=== PATIENT | female | born 1955 | race Caucasian/White ===

== ENCOUNTER 2022-07-27 08:27 | Inpatient (IN) | payer MEDICARE, MEDICAID ==
[~2022-07-27] VITALS: Ht 157.5 cm; Wt 54.4 kg
[2022-07-27 09:24] LABS: Basophils # (auto) 0.1 10 ^3/uL (0-0.2); Eosinophils # (auto) 0.2 10 ^3/uL (0-0.8); Eosinophils % (auto) 1.8 % (0.0-7.0); Hemoglobin 15.9 g/dL (12.2-16.2); Lymphocytes % (auto) 10.2 % (10.0-50.0); Mean Corpuscular Hemoglobin 31.3 pg (28.0-32.0); Mean Corpuscular Hgb Conc. 32.4 g/dL (32.0-36.0); Mean Corpuscular Volume 96.3 fL (80.0-100.0); Monocytes % (auto) 10.7 % (0.0-12.0); Neutrophils # (auto) 7.2 10 ^3/uL (1.6-8.6); Neutrophils % (auto) 76.3 % (37.0-80.0); Nucleated Red Blood Cells % 0.1 %; Red Blood Cells 5.09 10^6/uL (4.0-5.20); Red Cell Distribution Width 17.4 % (11.8-14.3); White Blood Cell 9.5 10^3/uL (4.4-10.8)
[2022-07-27 09:42] LABS: Albumin 3.1 g/dL (3.4-5.0); Calcium 8.6 mg/dL (8.5-10.1); Magnesium 2.7 mg/dL (1.6-2.6); Potassium 4.4 mmol/L (3.5-5.1)
[2022-07-27 09:46] LABS: BUN/Creatinine Ratio 14.8 (10.0-20.0); Bilirubin, Total 0.6 mg/dL (0.2-1.0); Total Protein 6.4 g/dL (6.4-8.2)
[2022-07-27] MEDS ORDERED: AMIODARONE HCL 150 MG in D5W 5% 100 ML IV ONE (11:45)
[2022-07-27] MEDS ORDERED: FUROSEMIDE 20 MG/2 ML VIAL IV ONE ×2 (11:45→13:15)
[2022-07-27] MEDS ORDERED: AMIODARONE 450mg/250ml AE 250 ML IV SCH (12:00)
[2022-07-27] MEDS ORDERED: DOCUSATE SOD 100 MG CAP PO PRN (13:15)
[2022-07-27] MEDS ORDERED: MORPHINE SULFATE INJ 2 MG/ml SYRG IV PRN (13:15)
[2022-07-27] MEDS ORDERED: HYDROcodone-ACET 5/325MG TAB PO PRN (13:15)
[2022-07-27] MEDS ORDERED: ONDANSETRON HCL 4 MG/2 ML VIAL IV PRN (13:15)
[2022-07-27] MEDS ORDERED: NITROGLYCERIN 0.4 MG SL TAB SL PRN (13:15)
[2022-07-27] MEDS ORDERED: METOPROLOL TARTRATE 25 MG TAB PO ONE (13:15)
[2022-07-27] MEDS: SODIUM CHLOR 0.9% PF (SALINE LOCK) 10ML VIAL/SYR IV SCH (14:25)
[2022-07-27] MEDS: FUROSEMIDE INJECTION 100 MG in SODIUM CHL 0.9% 100 ML IV SCH ×2 (14:49→23:51)
[2022-07-27 16:36] LABS: Magnesium 2.7 mg/dL (1.6-2.6)
[2022-07-27 16:38] LABS: Phosphorus 3.5 mg/dL (2.5-4.90)
[2022-07-27 17:29] LABS: Urine Bacteria FEW /hpf (None Seen); Urine Blood 3+ /uL (Negative); Urine Specific Gravity 1.012 (1.001-1.035); Urine WBC 19 /hpf (0 - 5)
[2022-07-27 17:57] LABS: Protein, Urine 194.6 mg/dL (0.0-11.9)
[2022-07-27] MEDS ORDERED: FUROSEMIDE 20 MG/2 ML VIAL IV SCH (18:00)
[2022-07-27] MEDS: AMIODARONE 450mg/250ml AE 250 ML IV SCH (19:01)
[2022-07-27] MEDS: cefTRIAXone 1GM/50ML D5W 50 ML IV SCH (19:02)
[2022-07-27] MEDS: ENOXAPARIN SOD 60 MG/0.6 ML SYRINGE SC SCH (19:04)
[2022-07-27 19:50] LABS: Albumin 2.6 g/dL (3.4-5.0); Calcium 7.9 mg/dL (8.5-10.1); Potassium 4.8 mmol/L (3.5-5.1)
[2022-07-27 19:53] LABS: BUN/Creatinine Ratio 15.4 (10.0-20.0); Bilirubin, Total 0.7 mg/dL (0.2-1.0); Total Protein 5.9 g/dL (6.4-8.2)
[2022-07-27 22:00] VITALS: BP 110/82
[2022-07-27] MEDS: METOPROLOL TARTRATE 25 MG TAB PO SCH (22:00)
[2022-07-27 22:11] VITALS: BP 110/82
[2022-07-27] MEDS ORDERED: ALBUMIN 25% 100 ML IV ONE (23:15)
[2022-07-28] MEDS ORDERED: ALBUMIN 25% 100 ML IV ONE
[2022-07-28] MEDS: SODIUM CHLOR 0.9% PF (SALINE LOCK) 10ML VIAL/SYR IV SCH ×4 (00:07→22:35)
[2022-07-28] MEDS: AMIODARONE 450mg/250ml AE 250 ML IV SCH ×2 (00:32→17:44)
[2022-07-28 05:00] VITALS: BP 99/78
[2022-07-28] MEDS ORDERED: METO25TA93 PO (05:56)
[2022-07-28 06:33] LABS: Basophils # (auto) 0.1 10 ^3/uL (0-0.2); Basophils % (auto) 0.7 % (0.0-2.0); Eosinophils # (auto) 0 10 ^3/uL (0-0.8); Eosinophils % (auto) 0.2 % (0.0-7.0); Hematocrit 40.7 % (36.0-46.0); Hemoglobin 13.1 g/dL (12.2-16.2); Lymphocytes % (auto) 12.6 % (10.0-50.0); Mean Corpuscular Hemoglobin 31.2 pg (28.0-32.0); Mean Corpuscular Hgb Conc. 32.2 g/dL (32.0-36.0); Mean Corpuscular Volume 96.7 fL (80.0-100.0); Monocytes % (auto) 12.5 % (0.0-12.0); Nucleated Red Blood Cells % 0.2 %; Red Cell Distribution Width 17.1 % (11.8-14.3); White Blood Cell 8.1 10^3/uL (4.4-10.8)
[2022-07-28 06:34] LABS: Potassium 4.7 mmol/L (3.5-5.1)
[2022-07-28 06:47] LABS: Albumin 3.6 g/dL (3.4-5.0); BUN/Creatinine Ratio 14.8 (10.0-20.0); Calcium 8.2 mg/dL (8.5-10.1); Total Protein 6.4 g/dL (6.4-8.2)
[2022-07-28 09:00] VITALS: BP 93/60
[2022-07-28] MEDS: METOPROLOL TARTRATE 25 MG TAB PO SCH (09:00)
[2022-07-28] MEDS: cefTRIAXone 1GM/50ML D5W 50 ML IV SCH (09:01)
[2022-07-28] MEDS: FUROSEMIDE INJECTION 100 MG in SODIUM CHL 0.9% 100 ML IV SCH ×2 (09:02→18:14)
[2022-07-28] MEDS: ENOXAPARIN SOD 60 MG/0.6 ML SYRINGE SC SCH (09:02)
[2022-07-28 13:00] VITALS: BP 93/67
[2022-07-28] MEDS ORDERED: CEFEPIME 1GM/ 50ML 50 ML IV ONE (13:45)
[2022-07-28 13:48] LABS: Hepatitis C Antibody Negative (Negative)
[2022-07-28] MEDS: SODIUM BICARBONATE 650 MG TAB PO SCH ×3 (13:54→22:35)
[2022-07-28 16:44] LABS: INR 1.3 (0.9-1.15)
[2022-07-28 17:00] VITALS: BP 122/81
[2022-07-28 22:00] VITALS: BP 96/61
[2022-07-28] MEDS ORDERED: CEFEPIME 1GM/ 50ML 50 ML IV SCH (22:00)
[2022-07-29] VITALS (9 sets, daily range): BP systolic 96–136; BP diastolic 56–84
[2022-07-29] MEDS: CEFEPIME 1GM/ 50ML 50 ML IV SCH ×2 (05:00→17:59)
[2022-07-29] MEDS: FUROSEMIDE INJECTION 100 MG in SODIUM CHL 0.9% 100 ML IV SCH ×3 (05:28→23:55)
[2022-07-29] MEDS: SODIUM CHLOR 0.9% PF (SALINE LOCK) 10ML VIAL/SYR IV SCH ×3 (05:29→22:36)
[2022-07-29] MEDS: SODIUM BICARBONATE 650 MG TAB PO SCH ×4 (05:30→22:34)
[2022-07-29 06:49] LABS: Basophils # (auto) 0.1 10 ^3/uL (0-0.2); Basophils % (auto) 1.4 % (0.0-2.0); Eosinophils # (auto) 0 10 ^3/uL (0-0.8); Eosinophils % (auto) 0.5 % (0.0-7.0); Hematocrit 42.6 % (36.0-46.0); Hemoglobin 13.8 g/dL (12.2-16.2); Lymphocytes # (auto) 1.1 10 ^3/uL (0.4-5.4); Mean Corpuscular Hgb Conc. 32.5 g/dL (32.0-36.0); Mean Corpuscular Volume 95.6 fL (80.0-100.0); Monocytes # (auto) 1.4 10 ^3/uL (0-1.3); Monocytes % (auto) 15.2 % (0.0-12.0); Neutrophils # (auto) 6.3 10 ^3/uL (1.6-8.6); Neutrophils % (auto) 70.9 % (37.0-80.0); Nucleated Red Blood Cells % 0.2 %; Red Blood Cells 4.45 10^6/uL (4.0-5.20); Red Cell Distribution Width 17.1 % (11.8-14.3)
[2022-07-29] MEDS: ENOXAPARIN SOD 60 MG/0.6 ML SYRINGE SC SCH (10:00)
[2022-07-29 10:18] LABS: Albumin 3.1 g/dL (3.4-5.0); Calcium 8.2 mg/dL (8.5-10.1); Potassium 4.9 mmol/L (3.5-5.1)
[2022-07-29 10:20] LABS: BUN/Creatinine Ratio 13.8 (10.0-20.0); Bilirubin, Total 0.7 mg/dL (0.2-1.0)
[2022-07-29] MEDS ORDERED: HEPARIN SODIUM (PORCINE) 5000 UNITS/ML 1ML VIAL ONE (11:19)
[2022-07-29] MEDS ORDERED: MIDAZOLAM HCL 2MG/2ML 2ml VIAL (1mg/ml) ONE (11:20)
[2022-07-29] MEDS ORDERED: LIDOCAINE 2%HCL (LOCAL ANESTH.) INJ 20ML MDV ONE (11:20)
[2022-07-29] MEDS ORDERED: fentaNYL CITRATE 100 MCG/2 ML VL ONE (11:20)
[2022-07-29] MEDS ORDERED: CLINDAMYCIN 600MG IV 50 ML IV ONE (11:47)
[2022-07-29] MEDS: AMIODARONE 450mg/250ml AE 250 ML IV SCH (15:00)
[2022-07-29] MEDS: CARVEDILOL 3.125 MG TAB PO SCH (22:36)
[2022-07-30] MEDS: AMIODARONE 450mg/250ml AE 250 ML IV SCH ×2 (04:14→20:25)
[2022-07-30 05:00] VITALS: BP 103/68
[2022-07-30] MEDS: SODIUM BICARBONATE 650 MG TAB PO SCH ×4 (05:18→21:09)
[2022-07-30] MEDS: SODIUM CHLOR 0.9% PF (SALINE LOCK) 10ML VIAL/SYR IV SCH ×3 (05:19→22:00)
[2022-07-30] MEDS: CEFEPIME 1GM/ 50ML 50 ML IV SCH ×2 (05:21→18:19)
[2022-07-30 05:54] LABS: Basophils # (auto) 0 10 ^3/uL (0-0.2); Basophils % (auto) 0.6 % (0.0-2.0); Eosinophils # (auto) 0.1 10 ^3/uL (0-0.8); Hemoglobin 13.3 g/dL (12.2-16.2); Lymphocytes # (auto) 0.7 10 ^3/uL (0.4-5.4); Lymphocytes % (auto) 7.8 % (10.0-50.0); Mean Corpuscular Hgb Conc. 33.3 g/dL (32.0-36.0); Mean Corpuscular Volume 96.1 fL (80.0-100.0); Monocytes # (auto) 1.2 10 ^3/uL (0-1.3); Monocytes % (auto) 13.2 % (0.0-12.0); Neutrophils # (auto) 6.8 10 ^3/uL (1.6-8.6); Neutrophils % (auto) 77.4 % (37.0-80.0); Nucleated Red Blood Cells % 0.1 %; Red Blood Cells 4.16 10^6/uL (4.0-5.20); Red Cell Distribution Width 17.2 % (11.8-14.3); White Blood Cell 8.7 10^3/uL (4.4-10.8)
[2022-07-30 06:01] LABS: Potassium 4.6 mmol/L (3.5-5.1)
[2022-07-30 06:12] LABS: Albumin 2.9 g/dL (3.4-5.0); BUN/Creatinine Ratio 13.9 (10.0-20.0); Bilirubin, Total 0.8 mg/dL (0.2-1.0); Calcium 7.7 mg/dL (8.5-10.1); Total Protein 5.8 g/dL (6.4-8.2)
[2022-07-30 09:00] VITALS: BP 114/74
[2022-07-30] MEDS: CARVEDILOL 3.125 MG TAB PO SCH ×2 (10:00→21:09)
[2022-07-30] MEDS ORDERED: ASPirin 81 mg TAB PO SCH (10:00)
[2022-07-30] MEDS: ENOXAPARIN SOD 60 MG/0.6 ML SYRINGE SC SCH (10:17)
[2022-07-30] MEDS: FUROSEMIDE INJECTION 100 MG in SODIUM CHL 0.9% 100 ML IV SCH ×2 (11:29→20:26)
[2022-07-30 13:00] VITALS: BP 112/67
[2022-07-30 16:00] VITALS: BP 105/66
[2022-07-30 22:00] VITALS: BP 144/97
[2022-07-31 05:00] VITALS: BP 126/86
[2022-07-31] MEDS ORDERED: CEFEPIME 1GM/ 50ML 50 ML IV SCH (06:00)
[2022-07-31] MEDS: SODIUM BICARBONATE 650 MG TAB PO SCH ×4 (06:03→21:49)
[2022-07-31] MEDS: SODIUM CHLOR 0.9% PF (SALINE LOCK) 10ML VIAL/SYR IV SCH ×3 (06:03→21:48)
[2022-07-31 06:56] LABS: Potassium 4.5 mmol/L (3.5-5.1)
[2022-07-31 07:02] LABS: BUN/Creatinine Ratio 14.2 (10.0-20.0); Calcium 7.7 mg/dL (8.5-10.1)
[2022-07-31 09:00] VITALS: BP 94/73
[2022-07-31] MEDS: CARVEDILOL 3.125 MG TAB PO SCH ×2 (10:00→21:49)
[2022-07-31] MEDS: ENOXAPARIN SOD 60 MG/0.6 ML SYRINGE SC SCH (10:06)
[2022-07-31] MEDS: FUROSEMIDE INJECTION 100 MG in SODIUM CHL 0.9% 100 ML IV SCH ×2 (10:07→18:07)
[2022-07-31] MEDS ORDERED: SODIUM CHL 0.9% 1000 ML BAG XX ONE (12:30)
[2022-07-31] MEDS: AMIODARONE 450mg/250ml AE 250 ML IV SCH (12:38)
[2022-07-31 13:00] VITALS: BP 110/73
[2022-07-31] MEDS: ACETAMINOPHEN 325 MG TAB PO PRN (15:43)
[2022-07-31 17:00] VITALS: BP 150/91
[2022-07-31 22:00] VITALS: BP 107/77
[2022-08-01] MEDS: AMIODARONE 450mg/250ml AE 250 ML IV SCH ×2 (03:19→19:00)
[2022-08-01] MEDS: FUROSEMIDE INJECTION 100 MG in SODIUM CHL 0.9% 100 ML IV SCH ×2 (03:20→13:37)
[2022-08-01 05:00] VITALS: BP 130/93
[2022-08-01] MEDS: SODIUM BICARBONATE 650 MG TAB PO SCH ×2 (05:43→11:10)
[2022-08-01] MEDS: SODIUM CHLOR 0.9% PF (SALINE LOCK) 10ML VIAL/SYR IV SCH ×3 (05:44→20:56)
[2022-08-01 06:42] LABS: Anion Gap 8 (5-15); BUN/Creatinine Ratio 12.6 (10.0-20.0); Blood Urea Nitrogen 54 mg/dL (7-18); Calcium 7.6 mg/dL (8.5-10.1); Carbon Dioxide 19 mmol/L (21-32); Chloride 109 mmol/L (98-107); GFR African American 13 mL/min; GFR Non-African American 11 mL/min; Glucose 105 mg/dL (74-106); Sodium 136 mmol/L (136-145)
[2022-08-01 09:00] VITALS: BP 128/80
[2022-08-01] MEDS ORDERED: CEFEPIME 1GM/ 50ML 50 ML IV SCH (10:00)
[2022-08-01] MEDS: ENOXAPARIN SOD 60 MG/0.6 ML SYRINGE SC SCH (11:10)
[2022-08-01] MEDS: CARVEDILOL 3.125 MG TAB PO SCH ×2 (11:10→20:57)
[2022-08-01 13:00] VITALS: BP 134/74
[2022-08-01 17:00] VITALS: BP 113/71
[2022-08-01] MEDS: ACETAMINOPHEN 325 MG TAB PO PRN (18:48)
[2022-08-01] MEDS: ceFAZolin 1GM/50ML 50 ML IV SCH (20:42)
[2022-08-01 22:00] VITALS: BP 129/75
[2022-08-02] MEDS: FUROSEMIDE INJECTION 100 MG in SODIUM CHL 0.9% 100 ML IV SCH ×2 (04:00→15:45)
[2022-08-02 06:12] LABS: BUN/Creatinine Ratio 13.5 (10.0-20.0); Potassium 3.8 mmol/L (3.5-5.1)
[2022-08-02] MEDS: SODIUM CHLOR 0.9% PF (SALINE LOCK) 10ML VIAL/SYR IV SCH ×3 (06:15→22:03)
[2022-08-02] MEDS: ceFAZolin 1GM/50ML 50 ML IV SCH ×3 (06:18→21:50)
[2022-08-02 06:29] LABS: Basophils # (auto) 0 10 ^3/uL (0-0.2); Basophils % (auto) 0.5 % (0.0-2.0); Eosinophils # (auto) 0.2 10 ^3/uL (0-0.8); Eosinophils % (auto) 2.2 % (0.0-7.0); Hematocrit 41.4 % (36.0-46.0); Hemoglobin 13.7 g/dL (12.2-16.2); Lymphocytes # (auto) 0.6 10 ^3/uL (0.4-5.4); Lymphocytes % (auto) 7.1 % (10.0-50.0); Mean Corpuscular Hemoglobin 31.5 pg (28.0-32.0); Mean Corpuscular Volume 95.6 fL (80.0-100.0); Monocytes # (auto) 0.9 10 ^3/uL (0-1.3); Monocytes % (auto) 11.6 % (0.0-12.0); Neutrophils # (auto) 6.2 10 ^3/uL (1.6-8.6); Neutrophils % (auto) 78.6 % (37.0-80.0); Red Blood Cells 4.33 10^6/uL (4.0-5.20); Red Cell Distribution Width 16.9 % (11.8-14.3); White Blood Cell 7.9 10^3/uL (4.4-10.8)
[2022-08-02] MEDS ORDERED: SODIUM CHL 0.9% 1000 ML BAG XX ONE (07:00)
[2022-08-02 09:00] VITALS: BP 131/77
[2022-08-02] MEDS: ACETAMINOPHEN 325 MG TAB PO PRN ×2 (09:51→18:15)
[2022-08-02] MEDS: CARVEDILOL 3.125 MG TAB PO SCH ×2 (09:52→21:59)
[2022-08-02] MEDS: AMIODARONE HCL 200 MG TAB PO SCH ×2 (09:54→21:58)
[2022-08-02] MEDS ORDERED: APIXABAN 2.5 MG TAB PO SCH (10:00)
[2022-08-02 13:00] VITALS: BP 114/71
[2022-08-02] MEDS ORDERED: ERGOCALCIFEROL 50,000 UNIT(1.25MG) CAP PO SCH (15:45)
[2022-08-02 17:00] VITALS: BP_SYST 100; BP_SYST 136; BP_DIAS 60; BP_DIAS 89
[2022-08-02 20:00] VITALS: BP 148/95
[2022-08-02 22:00] VITALS: BP 148/95
[2022-08-03] MEDS: ACETAMINOPHEN 325 MG TAB PO PRN ×2 (00:58→13:45)
[2022-08-03 05:00] VITALS: BP 124/94
[2022-08-03] MEDS: ceFAZolin 1GM/50ML 50 ML IV SCH ×2 (05:02→18:00)
[2022-08-03] MEDS: SODIUM CHLOR 0.9% PF (SALINE LOCK) 10ML VIAL/SYR IV SCH ×3 (06:58→22:58)
[2022-08-03] MEDS: FUROSEMIDE INJECTION 100 MG in SODIUM CHL 0.9% 100 ML IV SCH (07:32)
[2022-08-03 07:46] LABS: Calcium 7.7 mg/dL (8.5-10.1); Potassium 3.9 mmol/L (3.5-5.1)
[2022-08-03 07:49] LABS: BUN/Creatinine Ratio 13.2 (10.0-20.0)
[2022-08-03 09:00] VITALS: BP 157/93
[2022-08-03] MEDS: CARVEDILOL 3.125 MG TAB PO SCH ×2 (10:12→22:59)
[2022-08-03] MEDS: AMIODARONE HCL 200 MG TAB PO SCH ×2 (10:12→22:59)
[2022-08-03] MEDS ORDERED: SALINE 0.65 % NASAL SPRAY 45ML BOTTLE EACHNOSTRI ONE (11:45)
[2022-08-03] MEDS ORDERED: ALBUMIN 25% 100 ML IV ONE ×2 (12:00)
[2022-08-03] MEDS: Nepro With Carbsteady ButterPecan 8oz Carton PO SCH ×2 (12:00→18:00)
[2022-08-03] MEDS: SALINE 0.65 % NASAL SPRAY 45ML BOTTLE EACHNOSTRI SCH ×4 (12:00→23:00)
[2022-08-03 13:00] VITALS: BP 135/67
[2022-08-03] MEDS ORDERED: HEPARIN 1,000 UNITS/ml 1ML VIAL IV ONE ×2 (14:15→14:30)
[2022-08-03 17:02] VITALS: BP 132/51
[2022-08-03 22:00] VITALS: BP 121/72
[2022-08-04] MEDS: FUROSEMIDE INJECTION 100 MG in SODIUM CHL 0.9% 100 ML IV SCH (02:12)
[2022-08-04 05:00] VITALS: BP 140/90
[2022-08-04] MEDS: ceFAZolin 1GM/50ML 50 ML IV SCH ×2 (05:52→19:35)
[2022-08-04] MEDS: SALINE 0.65 % NASAL SPRAY 45ML BOTTLE EACHNOSTRI SCH ×4 (05:55→22:20)
[2022-08-04] MEDS: SODIUM CHLOR 0.9% PF (SALINE LOCK) 10ML VIAL/SYR IV SCH ×3 (05:55→22:15)
[2022-08-04] MEDS: Nepro With Carbsteady ButterPecan 8oz Carton PO SCH ×3 (08:00→18:00)
[2022-08-04 09:00] VITALS: BP 141/96
[2022-08-04] MEDS: CARVEDILOL 3.125 MG TAB PO SCH ×2 (09:32→22:14)
[2022-08-04] MEDS: AMIODARONE HCL 200 MG TAB PO SCH ×2 (09:33→22:15)
[2022-08-04 12:47] VITALS: BP 129/64
[2022-08-04 17:00] VITALS: BP 125/52
[2022-08-04 22:00] VITALS: BP 151/77
[2022-08-04] MEDS: APIXABAN 2.5 MG TAB PO SCH (22:15)
[2022-08-05 05:00] VITALS: BP 149/81
[2022-08-05] MEDS: SODIUM CHLOR 0.9% PF (SALINE LOCK) 10ML VIAL/SYR IV SCH ×3 (06:10→21:39)
[2022-08-05] MEDS: SALINE 0.65 % NASAL SPRAY 45ML BOTTLE EACHNOSTRI SCH ×4 (06:10→21:39)
[2022-08-05] MEDS: FUROSEMIDE 40 MG/4 ML VIAL IV SCH ×2 (06:10→17:38)
[2022-08-05] MEDS: ceFAZolin 1GM/50ML 50 ML IV SCH ×2 (06:10→17:39)
[2022-08-05] MEDS ORDERED: SODIUM CHL 0.9% 1000 ML BAG XX ONE (07:00)
[2022-08-05 09:00] VITALS: BP 133/73
[2022-08-05] MEDS: APIXABAN 2.5 MG TAB PO SCH ×2 (10:00→21:40)
[2022-08-05] MEDS: AMIODARONE HCL 200 MG TAB PO SCH ×2 (10:00→21:40)
[2022-08-05] MEDS: CARVEDILOL 3.125 MG TAB PO SCH ×2 (10:00→21:41)
[2022-08-05] MEDS: ACETAMINOPHEN 325 MG TAB PO PRN (11:33)
[2022-08-05 12:48] VITALS: BP 133/70
[2022-08-05] MEDS: Nepro With Carbsteady ButterPecan 8oz Carton PO SCH ×3 (14:00→17:57)
[2022-08-05 17:00] VITALS: BP 123/59
[2022-08-05 22:00] VITALS: BP 122/70
[2022-08-06 05:00] VITALS: BP 132/72
[2022-08-06] MEDS: ceFAZolin 1GM/50ML 50 ML IV SCH (05:22)
[2022-08-06] MEDS: SALINE 0.65 % NASAL SPRAY 45ML BOTTLE EACHNOSTRI SCH ×2 (05:23→13:31)
[2022-08-06] MEDS: FUROSEMIDE 40 MG/4 ML VIAL IV SCH (05:23)
[2022-08-06] MEDS: SODIUM CHLOR 0.9% PF (SALINE LOCK) 10ML VIAL/SYR IV SCH ×2 (05:23→14:20)
[2022-08-06 09:10] VITALS: BP 127/53
[2022-08-06] MEDS: Nepro With Carbsteady ButterPecan 8oz Carton PO SCH ×2 (09:32→13:31)
[2022-08-06] MEDS: AMIODARONE HCL 200 MG TAB PO SCH (10:01)
[2022-08-06] MEDS: CARVEDILOL 3.125 MG TAB PO SCH (10:02)
[2022-08-06] MEDS: APIXABAN 2.5 MG TAB PO SCH (10:02)
[2022-08-06 11:50] VITALS: BP 127/53
[2022-08-06 13:05] VITALS: BP 103/49
== END 2022-08-06 14:10 | DRG 673 ==
LOC: ER 08:27 → TELE 13:06 → TELE-WESTW 21:30
PROVIDERS: ADMIT Nurse Practitioner Family; ATTEND Internal Medicine
PROC: 02HV33Z Insertion of Infusion Device into Superior Vena Cava, Percutaneous Approach (ICD-10-PCS; 2022-07-29)
PROC: B5181ZA Fluoroscopy of Superior Vena Cava using Low Osmolar Contrast, Guidance (ICD-10-PCS; 2022-07-29)
PROC: B548ZZA Ultrasonography of Superior Vena Cava, Guidance (ICD-10-PCS; 2022-07-29)
PROC: 0JHD3XZ Insertion of Tunneled Vascular Access Device into Right Upper Arm Subcutaneous Tissue and Fascia, Percutaneous Approach (ICD-10-PCS; 2022-07-29)
PROC: 5A1D70Z Performance of Urinary Filtration, Intermittent, Less than 6 Hours Per Day (ICD-10-PCS; 2022-07-29)
PROC: 5A1D70Z Performance of Urinary Filtration, Intermittent, Less than 6 Hours Per Day (ICD-10-PCS; principal; 2022-07-31)
PROC: 5A1D70Z Performance of Urinary Filtration, Intermittent, Less than 6 Hours Per Day (ICD-10-PCS; 2022-07-31)
PROC: 5A1D70Z Performance of Urinary Filtration, Intermittent, Less than 6 Hours Per Day (ICD-10-PCS; 2022-08-03)
DX: N17.9 Acute kidney failure, unspecified (principal); I50.21 Acute systolic (congestive) heart failure; J96.01 Acute respiratory failure with hypoxia; I13.2 Hypertensive heart and chronic kidney disease with heart failure and with stage 5 chronic kidney disease, or end stage renal disease; N39.0 Urinary tract infection, site not specified; E87.20 Acidosis, unspecified; L03.116 Cellulitis of left lower limb; L03.115 Cellulitis of right lower limb; N18.6 End stage renal disease; I48.91 Unspecified atrial fibrillation; E55.9 Vitamin D deficiency, unspecified; R04.0 Epistaxis; Z60.8 Other problems related to social environment; Z99.2 Dependence on renal dialysis; Z88.0 Allergy status to penicillin; Z91.199 Patient's noncompliance with other medical treatment and regimen due to unspecified reason
CPT/HCPCS: 36415; 36558; 36600; 71045; 76775; 76937; 77001; 80048; 80053; 81001; 82306; 82570; 82805; 83036; 83735; 83880; 83970; 84100; 84156; 84300; 84443; 84484; 85025; 85379; 85610; 86803; 87040; 87086; 87340; 90935; 93005; 93306; 93970; 93971; 96365; 96366; 96368; 96375; 96376; 97110; 97116; 97163; 97530; 99152; 99291; C1894; G0378; J0690; J0696; J1642; J2250; J3490; J7060; P9047

== ENCOUNTER 2022-08-20 09:12 | Inpatient (IN) | payer MEDICARE, MEDICAID ==
[~2022-08-20] VITALS: Ht 157.5 cm; Wt 123.7 kg
[~2022-08-20 09:12] MED LIST: METO25TA93 PO
[2022-08-20 10:25] LABS: Basophils # (auto) 0.1 10 ^3/uL (0-0.2); Basophils % (auto) 1.6 % (0.0-2.0); Eosinophils # (auto) 0.3 10 ^3/uL (0-0.8); Eosinophils % (auto) 4.6 % (0.0-7.0); Hematocrit 32.6 % (36.0-46.0); Hemoglobin 10.5 g/dL (12.2-16.2); Lymphocytes # (auto) 0.7 10 ^3/uL (0.4-5.4); Lymphocytes % (auto) 11.4 % (10.0-50.0); Mean Corpuscular Hemoglobin 31.8 pg (28.0-32.0); Mean Corpuscular Hgb Conc. 32.3 g/dL (32.0-36.0); Mean Corpuscular Volume 98.4 fL (80.0-100.0); Monocytes # (auto) 0.8 10 ^3/uL (0-1.3); Monocytes % (auto) 12.7 % (0.0-12.0); Neutrophils # (auto) 4.6 10 ^3/uL (1.6-8.6); Neutrophils % (auto) 69.7 % (37.0-80.0); Nucleated Red Blood Cells % 0.1 %; Red Blood Cells 3.31 10^6/uL (4.0-5.20); Red Cell Distribution Width 16.4 % (11.8-14.3); White Blood Cell 6.6 10^3/uL (4.4-10.8)
[2022-08-20 10:44] LABS: Albumin 3.4 g/dL (3.4-5.0); Calcium 8.2 mg/dL (8.5-10.1); Potassium 3.7 mmol/L (3.5-5.1)
[2022-08-20] MEDS ORDERED: FUROSEMIDE 40 MG/4 ML VIAL IV ONE (10:45)
[2022-08-20 10:49] LABS: BUN/Creatinine Ratio 14.2 (10.0-20.0); Bilirubin, Total 0.6 mg/dL (0.2-1.0); Total Protein 7.4 g/dL (6.4-8.2)
[2022-08-20] MEDS ORDERED: BUMETANIDE 2.5mg/10ml (0.25 mg/ml) INJ IV ONE (13:30)
[2022-08-20] MEDS: BUMETANIDE INJECTION 12.5 MG in GIVE UN-DILUTED 0 ML IV SCH (22:00)
[2022-08-20] MEDS ORDERED: FUROSEMIDE 20 MG/2 ML VIAL IV SCH (22:00)
[2022-08-20] MEDS: MUPIROCIN 2% OINT 15gm or 22gm TOP SCH (22:00)
[2022-08-20] MEDS: METOPROLOL TARTRATE 25 MG TAB PO SCH (22:34)
[2022-08-20] MEDS: HEPARIN SODIUM (PORCINE) 5000 UNITS/ML 1ML VIAL SC SCH (22:37)
[2022-08-20] MEDS: hydrALAZINE HCL 20 MG/ML VL IV PRN (23:55)
[2022-08-21 06:10] LABS: Basophils # (auto) 0.2 10 ^3/uL (0-0.2); Eosinophils # (auto) 0.2 10 ^3/uL (0-0.8); Eosinophils % (auto) 2.5 % (0.0-7.0); Hematocrit 31.4 % (36.0-46.0); Hemoglobin 10.4 g/dL (12.2-16.2); Lymphocytes # (auto) 1.1 10 ^3/uL (0.4-5.4); Lymphocytes % (auto) 12.1 % (10.0-50.0); Mean Corpuscular Hgb Conc. 33.1 g/dL (32.0-36.0); Mean Corpuscular Volume 96.6 fL (80.0-100.0); Monocytes % (auto) 11.1 % (0.0-12.0); Neutrophils # (auto) 6.3 10 ^3/uL (1.6-8.6); Neutrophils % (auto) 72.3 % (37.0-80.0); Nucleated Red Blood Cells % 0.1 %; Red Blood Cells 3.26 10^6/uL (4.0-5.20); Red Cell Distribution Width 15.8 % (11.8-14.3); White Blood Cell 8.8 10^3/uL (4.4-10.8)
[2022-08-21 06:30] LABS: Potassium 4.2 mmol/L (3.5-5.1)
[2022-08-21 06:49] LABS: Albumin 3.5 g/dL (3.4-5.0); BUN/Creatinine Ratio 15.8 (10.0-20.0); Bilirubin, Total 0.7 mg/dL (0.2-1.0); Calcium 8.8 mg/dL (8.5-10.1); Total Protein 7.2 g/dL (6.4-8.2)
[2022-08-21 08:21] LABS: Urine Bacteria NONE SEEN /hpf (None Seen); Urine Blood Negative /uL (Negative); Urine Specific Gravity 1.006 (1.001-1.035); Urine WBC 49 /hpf (0 - 5)
[2022-08-21] MEDS: MUPIROCIN 2% OINT 15gm or 22gm TOP SCH ×2 (10:00→21:17)
[2022-08-21] MEDS: ASPirin 81 mg TAB PO SCH (10:00)
[2022-08-21] MEDS: METOPROLOL TARTRATE 25 MG TAB PO SCH ×2 (10:31→21:16)
[2022-08-21] MEDS: HEPARIN SODIUM (PORCINE) 5000 UNITS/ML 1ML VIAL SC SCH ×2 (10:32→21:14)
[2022-08-21] MEDS: BUMETANIDE INJECTION 12.5 MG in GIVE UN-DILUTED 0 ML IV SCH (14:31)
[2022-08-21] MEDS: hydrALAZINE HCL 20 MG/ML VL IV PRN (21:17)
[2022-08-21 22:46] VITALS: BP 160/77
[2022-08-22] MEDS ORDERED: [UNRECOGNIZED DRUG - CODE] IART (00:08)
[2022-08-22 05:00] VITALS: BP 140/58
[2022-08-22 06:53] LABS: BUN/Creatinine Ratio 17.2 (10.0-20.0); Calcium 8.8 mg/dL (8.5-10.1); Potassium 4.5 mmol/L (3.5-5.1)
[2022-08-22] MEDS ORDERED: SODIUM CHL 0.9% 1000 ML BAG XX ONE (07:00)
[2022-08-22 08:46] VITALS: BP 134/80
[2022-08-22] MEDS: MUPIROCIN 2% OINT 15gm or 22gm TOP SCH ×2 (10:00→22:04)
[2022-08-22] MEDS: ASPirin 81 mg TAB PO SCH (10:00)
[2022-08-22] MEDS: METOPROLOL TARTRATE 25 MG TAB PO SCH ×2 (10:55→22:15)
[2022-08-22] MEDS: HEPARIN SODIUM (PORCINE) 5000 UNITS/ML 1ML VIAL SC SCH ×2 (10:59→22:09)
[2022-08-22 13:00] VITALS: BP 115/67
[2022-08-22 16:46] VITALS: BP 124/58
[2022-08-22] MEDS: BUMETANIDE INJECTION 12.5 MG in GIVE UN-DILUTED 0 ML IV SCH (18:35)
[2022-08-22] MEDS ORDERED: EPOETIN ALFA-EPBX 4,000 UNIT/ML VIAL SC ONE (21:00)
[2022-08-22 23:36] VITALS: BP 132/60
[2022-08-23 05:43] VITALS: BP 146/79
[2022-08-23 09:00] VITALS: BP 133/53
[2022-08-23] MEDS: METOPROLOL TARTRATE 25 MG TAB PO SCH (10:00)
[2022-08-23] MEDS: ASPirin 81 mg TAB PO SCH (10:00)
[2022-08-23] MEDS: MUPIROCIN 2% OINT 15gm or 22gm TOP SCH (10:00)
[2022-08-23] MEDS: HEPARIN SODIUM (PORCINE) 5000 UNITS/ML 1ML VIAL SC SCH (10:14)
[2022-08-23] MEDS ORDERED: ACETAMINOPHEN 325 MG TAB PO PRN (11:30)
[2022-08-23 13:00] VITALS: BP 124/80
[2022-08-23 13:37] VITALS: BP 134/64
[2022-08-23 16:50] VITALS: BP 126/75
== END 2022-08-23 17:00 | DRG 291 ==
LOC: ER 09:12 → EDBD 09:12 → TELE 12:36 → TELE-WESTW 21:49
PROVIDERS: ADMIT Nurse Practitioner Family; ATTEND Internal Medicine Geriatric Medicine
PROC: 5A1D70Z Performance of Urinary Filtration, Intermittent, Less than 6 Hours Per Day (ICD-10-PCS; principal; 2022-08-23)
DX: I13.2 Hypertensive heart and chronic kidney disease with heart failure and with stage 5 chronic kidney disease, or end stage renal disease (principal); J96.21 Acute and chronic respiratory failure with hypoxia; N18.6 End stage renal disease; L03.114 Cellulitis of left upper limb; D62 Acute posthemorrhagic anemia; I50.22 Chronic systolic (congestive) heart failure; R19.5 Other fecal abnormalities; R35.0 Frequency of micturition; S51.012A Laceration without foreign body of left elbow, initial encounter; X58.XXXA Exposure to other specified factors, initial encounter; R79.89 Other specified abnormal findings of blood chemistry; I48.91 Unspecified atrial fibrillation; Z99.2 Dependence on renal dialysis; Z82.49 Family history of ischemic heart disease and other diseases of the circulatory system; Z88.0 Allergy status to penicillin; Z91.199 Patient's noncompliance with other medical treatment and regimen due to unspecified reason; Y93.89 Activity, other specified; Y92.89 Other specified places as the place of occurrence of the external cause; Y99.8 Other external cause status; Z79.899 Other long term (current) drug therapy
CPT/HCPCS: 36415; 71045; 78582; 80048; 80053; 81001; 82270; 83605; 83880; 84484; 85025; 85379; 87040; 87081; 87205; 90935; 93005; 96365; 96372; 96375; 99291; G0378

== ENCOUNTER 2022-10-22 12:33 | Inpatient (IN) | payer MEDICARE, MEDICAID ==
[~2022-10-22] VITALS: Ht 157.5 cm; Wt 43.9 kg
[2022-10-22 15:34] VITALS: O2SAT 92
[2022-10-22 15:47] LABS: Basophils # (auto) 0.2 10 ^3/uL (0-0.2); Basophils % (auto) 1.5 % (0.0-2.0); Eosinophils # (auto) 0.2 10 ^3/uL (0-0.8); Eosinophils % (auto) 2.1 % (0.0-7.0); Hemoglobin 10.8 g/dL (12.2-16.2); Lymphocytes # (auto) 1.2 10 ^3/uL (0.4-5.4); Lymphocytes % (auto) 10.4 % (10.0-50.0); Mean Corpuscular Hgb Conc. 31.8 g/dL (32.0-36.0); Mean Corpuscular Volume 97.5 fL (80.0-100.0); Monocytes % (auto) 8.8 % (0.0-12.0); Neutrophils # (auto) 8.6 10 ^3/uL (1.6-8.6); Neutrophils % (auto) 77.2 % (37.0-80.0); Nucleated Red Blood Cells % 0.1 %; Red Blood Cells 3.49 10^6/uL (4.0-5.20); Red Cell Distribution Width 16.6 % (11.8-14.3); White Blood Cell 11.1 10^3/uL (4.4-10.8)
[2022-10-22 16:00] LABS: Albumin 3.3 g/dL (3.4-5.0); BUN/Creatinine Ratio 9.7 (10.0-20.0); Calcium 8.5 mg/dL (8.5-10.1); Potassium 4.2 mmol/L (3.5-5.1)
[2022-10-22 16:02] LABS: Bilirubin, Total 0.4 mg/dL (0.2-1.0); Total Protein 7.4 g/dL (6.4-8.2)
[2022-10-22] MEDS ORDERED: DOCUSATE SOD 100 MG CAP PO PRN (17:15)
[2022-10-22] MEDS ORDERED: ACETAMINOPHEN 325 MG TAB PO PRN (17:15)
[2022-10-22] MEDS ORDERED: HYDROcodone-ACET 5/325MG TAB PO PRN (17:15)
[2022-10-22] MEDS ORDERED: ONDANSETRON HCL 4 MG/2 ML VIAL IV PRN (17:15)
[2022-10-22] MEDS ORDERED: ERGOCALCIFEROL 50,000 UNIT(1.25MG) CAP PO SCH (17:30)
[2022-10-22 18:08] LABS: Urine Bacteria FEW /hpf (None Seen); Urine WBC 5 /hpf (0 - 5)
[2022-10-22 19:08] LABS: Urine Blood Negative /uL (Negative); Urine Clarity CLEAR (Clear); Urine Color Straw (Yellow); Urine Protein, UAD 1+ (Negative); Urine Urobilinogen Normal (Negative); Urine pH 7 (5.0-8.0)
[2022-10-22 19:30] VITALS: PULSE 55; RESP 15; O2SAT 99
[2022-10-22] MEDS: APIXABAN 2.5 MG TAB PO SCH (22:10)
[2022-10-22 22:15] VITALS: PULSE 54; RESP 19; O2SAT 99
[2022-10-23] MEDS ORDERED: SODIUM CHL 0.9% 1000 ML BAG XX ONE (07:00)
[2022-10-23 09:42] VITALS: PULSE 68; RESP 20; O2SAT 98
[2022-10-23 09:57] LABS: BUN/Creatinine Ratio 11.1 (10.0-20.0); Calcium 7.7 mg/dL (8.5-10.1); Potassium 4.3 mmol/L (3.5-5.1)
[2022-10-23] MEDS ORDERED: FAMOTIDINE 20 MG TAB PO SCH (10:00)
[2022-10-23] MEDS: BUMETANIDE 1 MG TAB PO SCH (13:35)
[2022-10-23] MEDS: APIXABAN 2.5 MG TAB PO SCH ×2 (13:35→22:21)
[2022-10-23 20:00] VITALS: TEMP 98.9
[2022-10-23] MEDS ORDERED: EPOETIN ALFA-EPBX 10,000 UNIT/1ML VIAL SC ONE (21:00)
[2022-10-24] MEDS ORDERED: METOPROLOL TARTRATE 25 MG TAB PO ONE (00:45)
[2022-10-24 05:48] LABS: Basophils # (auto) 0.2 10 ^3/uL (0-0.2); Basophils % (auto) 1.2 % (0.0-2.0); Eosinophils # (auto) 0.3 10 ^3/uL (0-0.8); Eosinophils % (auto) 2.1 % (0.0-7.0); Hematocrit 33.5 % (36.0-46.0); Hemoglobin 10.7 g/dL (12.2-16.2); Lymphocytes # (auto) 1.9 10 ^3/uL (0.4-5.4); Lymphocytes % (auto) 13.7 % (10.0-50.0); Mean Corpuscular Hemoglobin 30.8 pg (28.0-32.0); Mean Corpuscular Volume 96.3 fL (80.0-100.0); Monocytes # (auto) 1.3 10 ^3/uL (0-1.3); Monocytes % (auto) 9.3 % (0.0-12.0); Neutrophils # (auto) 10.1 10 ^3/uL (1.6-8.6); Neutrophils % (auto) 73.7 % (37.0-80.0); Nucleated Red Blood Cells % 0.1 %; Red Blood Cells 3.48 10^6/uL (4.0-5.20); Red Cell Distribution Width 17.2 % (11.8-14.3); White Blood Cell 13.7 10^3/uL (4.4-10.8)
[2022-10-24 06:05] LABS: Calcium 8.7 mg/dL (8.5-10.1); Potassium 4.8 mmol/L (3.5-5.1)
[2022-10-24 06:14] LABS: BUN/Creatinine Ratio 11.9 (10.0-20.0)
[2022-10-24] MEDS ORDERED: cefTRIAXone 1GM/50ML D5W 50 ML IV SCH (09:00)
[2022-10-24] MEDS: BUMETANIDE 1 MG TAB PO SCH (10:42)
[2022-10-24] MEDS: APIXABAN 2.5 MG TAB PO SCH (10:42)
[2022-10-24 12:00] VITALS: BP 162/63; PULSE 73; RESP 17; O2SAT 98
[2022-10-24 13:12] LABS: Hepatitis A Ab IgM Negative; Hepatitis B Core IgM Negative; Hepatitis B Surface Antigen Negative (Negative); Hepatitis C Antibody Negative (Negative)
[2022-10-25] MEDS ORDERED: SODIUM CHL 0.9% 1000 ML BAG XX ONE (11:15)
[2022-10-25] MEDS ORDERED: EPOETIN ALFA-EPBX 4,000 UNIT/ML VIAL SC ONE (21:00)
== END 2022-10-24 13:25 | disposition home or self-care (01) | DRG 291 ==
LOC: ER 12:34 → TELE 17:14
PROVIDERS: ADMIT Internal Medicine; ATTEND Student in an Organized Health Care Education/Training Program
PROC: 5A1D70Z Performance of Urinary Filtration, Intermittent, Less than 6 Hours Per Day (ICD-10-PCS; principal; 2022-10-23)
DX: I13.2 Hypertensive heart and chronic kidney disease with heart failure and with stage 5 chronic kidney disease, or end stage renal disease (principal); E43 Unspecified severe protein-calorie malnutrition; N18.6 End stage renal disease; Z68.1 Body mass index [BMI] 19.9 or less, adult; N39.0 Urinary tract infection, site not specified; I50.22 Chronic systolic (congestive) heart failure; I48.91 Unspecified atrial fibrillation; D63.1 Anemia in chronic kidney disease; D72.829 Elevated white blood cell count, unspecified; Z88.1 Allergy status to other antibiotic agents; Z91.012 Allergy to eggs; Z91.011 Allergy to milk products; Z88.0 Allergy status to penicillin; Z91.013 Allergy to seafood; Z88.8 Allergy status to other drugs, medicaments and biological substances; Z91.018 Allergy to other foods; Z75.1 Person awaiting admission to adequate facility elsewhere; Z99.2 Dependence on renal dialysis; Z82.49 Family history of ischemic heart disease and other diseases of the circulatory system; Z79.01 Long term (current) use of anticoagulants
CPT/HCPCS: 36415; 71045; 80048; 80053; 80074; 81001; 82962; 85025; 90935; 97163; G0378; J0696; J1642